=== PATIENT | female | born 1935 | race American Indian/Alaskan Native ===

== ENCOUNTER 2017-09-21 12:56 | Outpatient (CLI) | payer MEDICARE, OTHER ==
--- NOTE | 2017-09-22 15:12 | Ultrasound Report ---
BILATERAL DIGITAL DIAGNOSTIC MAMMOGRAM with CAD and RIGHT BREAST ULTRASOUND: 09/21/17 12:56:00 CLINICAL: Breast cancer survivor status post right mastectomy with TRAM reconstruction approximately 16 years ago. Right breast lump. COMPARISON:05/05/16 FINDINGS: The left breast is heterogeneously dense, which may obscure small masses.No mass, architectural distortion or suspicious calcifications. Left vascular calcifications. Normal appearance of the reconstructed right breast. No mass, architectural distortion or suspicious calcifications of the right TRAM reconstruction. Ultrasound of the symptomatic palpable lump was performed. It is located at 1 o'clock 9 cm from the nipple and correlates with the lesion described previously at 1 o'clock 7 cm from the nipple. It measures 5 x 5 x 3 mm and is more echogenic than on the prior exam. It was completely anechoic. The lesion is within the skin and the skin is thickened at 5 mm. IMPRESSION: No mammographic evidence of malignancy.A benign 5 mm skin lesion at 1 o'clock 9 cm from the nipple. This lesion is consistent with benign fat necrosis and although it has changed slightly in appearance, it has no suspicious features. BI-RADS CATEGORY: 3 - - Probably Benign RECOMMENDATION: Six month followup ultrasound of the right palpable skin lesion at 1 o'clock 9 cm from the nipple. ACR BI-RADS MAMMOGRAPHIC CODES: 0 = Needs additional imaging evaluation; 1 = Negative; 2 = Benign; 3 = Probably benign; 4 = Suspicious; 5 = Malignant; 6 = Known biopsy-proven malignancy COMMENT: 1. Dense breast tissue, i.e., adenosis, fibrocystic changes, etc., may obscure an underlying neoplasm. 2. Approximately 10% of cancers are not detected with mammography. 3. A negative mammography report should not delay biopsy if a clinically suspicious mass is present. COMMENT: Patient follow-up letters are generated by our [employer] application.
== END 2017-09-21 12:57 | disposition home or self-care (01) ==
LOC: SPVWC 12:56
PROVIDERS: ATTEND Internal Medicine Hematology & Oncology
DX: N64.89 Other specified disorders of breast (principal); Z90.11 Acquired absence of right breast and nipple; Z98.82 Breast implant status
CPT/HCPCS: 76642; G0204; 77066; 77067; G0202

== ENCOUNTER 2017-11-27 09:09 | Outpatient (CLI) | payer MEDICARE, OTHER ==
[2017-11-27] MEDS ORDERED: PROVENTIL IH ONE (10:37)
--- NOTE | 2017-11-27 13:24 | XRay Report ---
Chest 2 views: History: Cough. Findings: Normal cardiomediastinal silhouette. Trachea is midline. Stable pacemaker. No consolidation, pneumothorax or pleural effusion. Impression: No acute cardiopulmonary findings.
--- NOTE | 2017-11-28 07:42 | Ultrasound Report ---
ULTRASOUND RENAL BILATERAL HISTORY: Cyst of kidney. TECHNIQUE: transabdominal ultrasound with color Doppler interrogation. Comparison: Ultrasound abdomen dated 12/05/11. FINDINGS: The right kidney measures 11.0cm. Right renal cortex: 1.0cm. The left kidney measures 12.4cm. Left renal cortex: 1.2cm. Multiple bilateral renal cysts are again identified. The largest cyst within the right renal sinus has increased from 6.7 cm to 7.7 cm in greatest diameter. There are multiple adjacent smaller right renal cysts ranging from 1 cm to 3 cm in diameter. This could also represent a complex cyst with multiple internal septa. There are approximately 4 or 5 simple cortical cysts in the left kidney. The largest cyst at the superior pole has increased from 4.9 cm to 6.9 cm. The renal parenchyma is echogenic consistent with nonspecific renal parenchymal disease. There is no obvious hypervascular mass, calculus or hydronephrosis. The bladder is partially distended with no gross abnormality. IMPRESSION: Echogenic kidneys consistent with nonspecific renal parenchymal disease. Multiple, bilateral renal cysts. When comparing to the 2012 abdominal sonogram the overall pattern of the cysts appears unchanged although a few cysts appear slightly larger.
--- NOTE | 2017-11-29 23:31 | Pulmonary Function Test ---
REFERRING PHYSICIAN: Delroy Oshea MD Spirometry reveal FVC is normal. FEV1 is moderately reduced at 0.93 liters, which is 71% of predicted. FEV1/FVC ratio is reduced at 53. MVV is reduced out of proportion of reduced FEV1, indicating neuromuscular weakness or poor effort. Flow volume loop revealed reduction of flow rates during expiration. Lung volumes were normal. Diffusion capacity is moderate to severely reduced at 53% of predicted. Postbronchodilator study showed 14% increase in FEV1 following inhaled bronchodilators showing some reversibility. Arterial blood gases on room air showed pH of 7.39, pCO2 of 40, pO2 of 71. Bicarb of 24. IMPRESSION: Moderate degree of obstructive ventilatory impairment with some reversibility noted, changes are suggestive of chronic obstructive pulmonary disease. Arterial blood gases show evidence of V/Q mismatch and mild hypoxemia. If the patient is symptomatic, therapy with bronchodilator is recommended. JOB# [id number] CA/NTS
== END 2017-11-27 09:10 | disposition home or self-care (01) ==
LOC: PF 09:09
PROVIDERS: ATTEND Internal Medicine
DX: N28.1 Cyst of kidney, acquired (principal); J44.9 Chronic obstructive pulmonary disease, unspecified; N32.89 Other specified disorders of bladder; Z95.0 Presence of cardiac pacemaker
CPT/HCPCS: 36600; 71046; 76770; 82803; 94060; 94640; 94726; 94729

== ENCOUNTER 2018-03-23 13:47 | Outpatient (CLI) | payer MEDICARE, OTHER ==
--- NOTE | 2018-03-23 16:09 | Ultrasound Report ---
RIGHT BREAST ULTRASOUND: 03/23/18 13:47:00 CLINICAL: Followup of any palpable right breast lump at 1 o'clock 8 cm from the nipple. Status post right mastectomy with TRAM reconstruction approximately 16 years ago. COMPARISON: 09/21/17 and 05/05/16 FINDINGS: Ultrasound of the right breast demonstrated a stable subcutaneous oval hypoechoic slightly irregular mass contiguous to the dermis at 1 o'clock 8 cm from the nipple. It measures approximately 6 x 2 6 mm compared to 5 x 5 x 3 mm on the last exam. It has a few internal echoes and is not significantly changed in appearance since 05/05/16. IMPRESSION: A stable benign skin lesion at 1 o'clock 8 cm from the nipple. BI-RADS 2 - - Benign RECOMMENDATION: Clinical followup.
== END 2018-03-23 13:48 | disposition home or self-care (01) ==
LOC: SPVWC 13:47
PROVIDERS: ATTEND Internal Medicine Hematology & Oncology
DX: C50.919 Malignant neoplasm of unspecified site of unspecified female breast (principal); J44.9 Chronic obstructive pulmonary disease, unspecified; I10 Essential (primary) hypertension; Z95.1 Presence of aortocoronary bypass graft; Z90.710 Acquired absence of both cervix and uterus; Z96.651 Presence of right artificial knee joint

== ENCOUNTER 2018-10-28 19:37 | Emergency (ER) | payer MEDICARE, OTHER ==
[2018-10-28 20:40] LABS: Hematocrit 42.9 % (30.3-42.9); Hemoglobin 13.7 gm/dl (10.1-14.3); Mean Corpuscular HGB Conc 32 % (30-34); Mean Corpuscular Volume 90 fl (79-97); Platelet Count 118 K/mm3 (140-440); Red Blood Count 4.78 M/mm3 (3.65-5.03); Red Cell Distribution Width 13.5 % (13.2-15.2)
[2018-10-28 20:58] LABS: BUN/Creatinine Ratio 19; Blood Urea Nitrogen 21 mg/dL (7-17); Calcium 9.3 mg/dL (8.4-10.2); Hemolysis Index 93
--- NOTE | 2018-10-28 21:34 | XRay Report ---
FINAL REPORT EXAM: XR CHEST ROUTINE 2V HISTORY: Shortness of breath COMPARISON: None available. FINDINGS:: Frontal and lateral views of the chest obtained. Cardiac silhouette is within normal limi ts. Mild hyperinflation of the lungs. Tiny calcified granuloma right upper lung. No focal consolidati on or effusion. No pneumothorax. Visualized bony thorax is grossly intact. Left-sided cardiac pacer i s in place. IMPRESSION:: No acute infiltrates or effusions. Mild hyperinflation of the lungs.
[2018-10-28] MEDS ORDERED: SOLU-Medrol IV ONE (21:40)
[2018-10-28] MEDS ORDERED: PROVENTIL IH ONE (21:41)
[2018-10-28] MEDS ORDERED: ATROVENT IH ONE (21:41)
--- NOTE | 2018-10-28 21:51 | Emergency Department Report ---
HPI - General Chief Complaint: Dyspnea/Respdistress Time Seen by Provider: 10/28/18 21:35 - HPI HPI: 82-year-old -[place] female presents to the emergency department from home with a complaint of some shortness of breath and a mixed dry and productive cough and some wheezing has been going on for most of the day. The patient says that she was recently diagnosed with COPD back in December of last year. She is not oxygen dependent at home. She has never been a tobacco smoker. Patient was here at the end of September for a COPD exacerbation and similar symptoms. She denies any fever, chest pain, lower extremity edema, fever. The patient has been using her albuterol nebulizer and increasing amounts throughout the day without much relief. Her primary care physician is Dr. Malik and her manager market is Dr. Goss. She also has a past medical history of hypertension and has a pacemaker in place for a history of irregular heart rate. No recent travel or sick contacts at home. ED Past Medical Hx - Past Medical History Hx Hypertension: Yes Hx COPD: Yes (dx 12/2017) - Surgical History Hx Open Heart Surgery: Yes (pacemaker) Hx Pacemaker: Yes (Irregular HR) Additional Surgical History: HYSTERECTOMY, RT MASTECTOMY,PACEMAKER,TOTAL RT KNEE SURGERY, L eye sx x 5. - Social History Smoking Status: Never Smoker Substance Use Type: None - Medications Home Medications: Home Medications Medication Instructions Recorded Confirmed Last Taken Type RX: Calcium Carbonate/Vitamin D3 1 each PO DAILY 09/07/14 09/07/14 09/06/14 History [Centrum Pro Nutrients Tablet] RX: Carvedilol [Coreg] 25 mg PO BID 09/07/14 09/07/14 09/06/14 History RX: Felodipine [Felodipine ER] 5 mg PO DAILY 09/07/14 09/07/14 09/06/14 History RX: LORazepam [Ativan] 0.5 mg PO HS 09/07/14 09/07/14 09/06/14 History RX: Olmesartan (Nf) [Benicar] 40 mg PO DAILY 09/07/14 09/07/14 09/06/14 History RX: Tramadol HCl [traMADol] 50 mg PO DAILY PRN 09/07/14 09/07/14 Unknown History Ipratropium/Albuterol Sulfate 1 spray IH QID #1 aer.w.adap 09/08/14 Unknown Rx [Combivent Respimat] RX: Amoxicillin/K Clav Tab 1 each PO Q12HR #14 tablet 09/08/14 Unknown Rx [Augmentin 875MG TAB] Albuterol Sulfate [Albuterol 0.63% 0.63 mg IH Q4HR PRN #2 ml 10/12/18 Unknown Rx NEBS] Albuterol Sulfate [Proair 90 mcg IH Q4HR PRN #2 aer.pow.ba 10/12/18 Unknown Rx Respiclick] Ipratropium [Atrovent NEB] 0.5 mg IH Q4HR #2 ml 10/12/18 Unknown Rx Nebulizer [Compact Compressor 1 each MC QDAY #1 each 10/12/18 Unknown Rx Nebulizer] RX: predniSONE [Deltasone] 20 mg PO BID #10 tab 10/29/18 Unknown Rx ED Review of Systems ROS: Stated complaint: JORDEN Other details as noted in HPI Comment: All other systems reviewed and negative Constitutional: denies: chills, fever Eyes: denies: eye pain, eye discharge, vision change ENT: denies: ear pain, throat pain Respiratory: cough, shortness of breath, wheezing Cardiovascular: denies: chest pain, edema Gastrointestinal: denies: abdominal pain, vomiting Genitourinary: denies: dysuria, discharge Musculoskeletal: denies: back pain, arthralgia Skin: denies: rash, lesions Neurological: denies: headache, weakness Physical Exam - Physical Exam Vital Signs: Vital Signs 10/28/18 10/28/18 10/28/18 19:43 20:19 21:35 Temperature 97.6 F 97.6 F 97.8 F Pulse Rate 81 80 85 Respiratory 18 20 12 Rate Blood Pressure 112/73 112/73 Blood Pressure 143/73 [Left] O2 Sat by Pulse 86 96 97 Oximetry Physical Exam: GENERAL: The patient is well-developed well-nourished. HEENT: Normocephalic. Atraumatic. Patient has moist mucous membranes. EYES: Extraocular motions are intact. Pupils are equal and reactive to light bilaterally. NECK: Supple. Trachea is midline. CHEST/LUNGS: There is mild expiratory wheezing throughout the chest. A mild dry cough heard during examination. No tachypnea or accessory muscle use. There is no respiratory distress noted. HEART/CARDIOVASCULAR: Regular. There is no tachycardia. There is no obvious murmur. ABDOMEN: Abdomen is soft, nontender. Patient has normal bowel sounds. There is no abdominal distention. SKIN: Skin is warm and dry. NEURO: The patient is awake, alert, and oriented. The patient is cooperative. The patient has no focal neurologic deficits. The patient has normal speech. MUSCULOSKELETAL: There is no tenderness or deformity. There is no limitation range of motion. There is no evidence of acute injury. ED Course Vital Signs 10/28/18 10/28/18 10/28/18 19:43 20:19 21:35 Temperature 97.6 F 97.6 F 97.8 F Pulse Rate 81 80 85 Respiratory 18 20 12 Rate Blood Pressure 112/73 112/73 Blood Pressure 143/73 [Left] O2 Sat by Pulse 86 96 97 Oximetry ED Medical Decision Making - Lab Data Result diagrams: 10/28/18 20:27 10/28/18 20:27 - EKG Data -: EKG Interpreted by Me - EKG Data When compared to previous EKG there are: no significant change Interpretation: unchanged when compared t (10/12/18), other (ventricular paced rhythm at 78 bpm, left axis deviation.) - Radiology Data Radiology results: report reviewed, image reviewed interpreted by me: Chest x-ray shows some hyperinflation of the lungs and flattening of the diaphragms. No pleural effusion or obvious pneumonia. No pneumothorax. EXAM: CT ANGIO CHEST HISTORY: SOB, elevated dimer COMPARISON: Chest x-ray from the same date. CT of the chest from August 2014. TECHNIQUE: Contiguous axial images were obtained. Additional sagittal and coronal reformatted images were obtained. Administration of IV contrast given per institution protocol. Images submitted for interpretation. FINDINGS: Heart borderline enlarged. Thoracic aorta is normal in caliber. Ascending thoracic aorta measures 3 centimeters in diameter. No acute dissection or rupture. No pulmonary embolus. Main pulmonary arteries measure up to 2 centimeters in diameter within normal limits. Benign calcified right hilar lymph nodes compatible sequela remote granulomatous disease. No pathologically enlarged intrathoracic or axillary lymph nodes. Tracheobronchial tree remains patent. Small amount of frothy material within bronchi. Wxux-nf-quyrcykm diffuse bronchial wall thickening similar prior study. Mild linear atelectasis at the lung bases. No large airspace consolidation or pleural effusion. Calcified granuloma right upper lobe measuring 4 millimeters. Snjx-ys-wshmmkgv distention of the majority the soft the Pito. Distal esophagus is mildly narrowed. Partial visualization of multiple bilateral renal cysts. Wybw-gf-tqmuuynt degenerative changes of the thoracic spine. Benign hemangioma at the T12 level. Two small left hepatic lobe cyst. IMPRESSION: No pulmonary embolus. Bxex-zl-ugqvuvvb diffuse bronchial wall thickening similar prior study concerning for chronic bronchitis. No acute infiltrates or effusions. Wwrd-nu-cgalqbpz distention of the esophagus. Mild narrowing of the distal esoph lakisha. Similar findings seen on prior study. Dilatation the esophagus may relate to patulous esophagus rather the obstructive process. Transcribed By: LMA Dictated By: CHRISTIAN WILKINS MD Electronically Authenticated By: CHRISTIAN WILKINS MD Signed Date/Time: 10/29/1839 - Medical Decision Making Patient presents with some shortness of breath, wheezing, coughing. She has some mild bronchospasm on examination but does not appear in any respiratory distress. Chest x-ray did not show any focal consolidation, pneumothorax, pneumonia, pleural effusions, or any other acute process. Labs were mostly unremarkable except for a elevated and equivocal d-dimer. For this reason a CT angiography of the chest was done that did not show any pulmonary embolism, diss ection or any other acute process. Patient was given some breathing treatments and Solu-Medrol and upon reevaluation she is feeling improved. The patient did a lap around the emergency department and did not have any hypoxia, increased work of breathing or tachypnea, or any signs of respiratory distress. The patient says that she feels well and is asking for discharge home. She has good follow-up with both primary care and pulmonology. She has DuoNeb treatments that she can do at home. I have prescribed her a 5 day course of steroids. She will return to the ER with any worsening of her symptoms or any acute distress. - Differential Diagnosis COPD, PE, asthma, bronchitis, pneumonia, CHF Critical Care Time: No Critical care attestation.: If time is entered above; I have spent that time in minutes in the direct care of this critically ill patient, excluding procedure time. ED Disposition Clinical Impression: COPD (chronic obstructive pulmonary disease) Qualifiers: COPD type: COPD with acute exacerbation Qualified Code(s): J44.1 - Chronic obstructive pulmonary disease with (acute) exacerbation Disposition: DC-01 TO HOME OR SELFCARE Is pt being admited?: No Condition: Stable Instructions: Chronic Obstructive Pulmonary Disease (ED) Additional Instructions: Please follow-up with your primary care physician and manager market. Return to the emergency Department with any worsening of your symptoms or any acute distress. Prescriptions: RX: predniSONE [Deltasone] 20 mg PO BID #10 tab Referrals: Cherelle FLOWERS MD [Primary Care Provider] - 2-3 Days SHERWIN GOSS MD [Staff Physician] - 2-3 Days Time of Disposition: 01:49
[2018-10-28 22:57] VITALS: BP 125/95
--- NOTE | 2018-10-29 00:40 | Cat Scan Report ---
FINAL REPORT EXAM: CT ANGIO CHEST HISTORY: SOB, elevated dimer COMPARISON: Chest x-ray from the same date. CT of the chest from August 2014. TECHNIQUE: Contiguous axial images were obtained. Additional sagittal and coronal reformatted images were obtained. Administration of IV contrast given per institution protocol. Images submitted for in terpretation. FINDINGS: Heart borderline enlarged. Thoracic aorta is normal in caliber. Ascending thoracic aorta measures 3 c entimeters in diameter. No acute dissection or rupture. No pulmonary embolus. Main pulmonary arteries measure up to 2 centimeters in diameter within normal limits. Benign calcified right hilar lymph nod es compatible sequela remote granulomatous disease. No pathologically enlarged intrathoracic or axill shyla lymph nodes. Tracheobronchial tree remains patent. Small amount of frothy material within bronchi. Yfja-qs-vunaanl e diffuse bronchial wall thickening similar prior study. Mild linear atelectasis at the lung bases. N o large airspace consolidation or pleural effusion. Calcified granuloma right upper lobe measuring 4 millimeters. Zxic-ep-vrcktvwh distention of the majority the soft the Pito. Distal esophagus is mildly narrowed. Pa rtial visualization of multiple bilateral renal cysts. Tuvn-xa-iateqbvt degenerative changes of the t horacic spine. Benign hemangioma at the T12 level. Two small left hepatic lobe cyst. IMPRESSION: No pulmonary embolus. Nisk-vx-kptpphbg diffuse bronchial wall thickening similar prior study concerning for chronic bronchi tis. No acute infiltrates or effusions. Krmv-ke-vtoffevb distention of the esophagus. Mild narrowing of the distal esophagus. Similar finding s seen on prior study. Dilatation the esophagus may relate to patulous esophagus rather the obstructi ve process.
[2018-10-29 02:36] LABS: Basophils % (Manual) 0 % (0.0-1.8); Platelet Estimate Appears Decreased; Total Cells Counted 100
== END 2018-10-29 02:04 | disposition home or self-care (01) ==
LOC: ED 19:37
DX: J44.1 Chronic obstructive pulmonary disease with (acute) exacerbation (principal)
CPT/HCPCS: 36415; 71046; 71275; 80048; 83880; 84484; 85007; 85025; 85379; 93005; 93010; 94640; 96374; 99284; J2930; Q9967

== ENCOUNTER 2018-11-10 00:56 | Emergency (ER) | payer MEDICARE, OTHER ==
[2018-11-10] MEDS ORDERED: TYLENOL ONE (01:42)
[2018-11-10] MEDS ORDERED: TYLENOL PO ONE (01:44)
--- NOTE | 2018-11-10 02:27 | XRay Report ---
FINAL REPORT PROCEDURE: XR CHEST ROUTINE 2V TECHNIQUE: PA and lateral chest radiographs were obtained. CPT 65211 HISTORY: Shortness of breath COMPARISON: No prior studies are available for comparison. FINDINGS: Heart: Normal. Mediastinum/Vessels: Normal. Lungs/Pleural space: Lungs are expanded. There are no infiltrates, effusions or pneumothoraces.. Bony thorax: No acute osseous abnormality. Other: Pacemaker leads are in proper position. IMPRESSION: There is no acute cardiopulmonary abnormality..
[2018-11-10 02:28] LABS: Basophils % (Auto) 0.4 % (0.0-1.8); Eosinophils # (Auto) 0.1 K/mm3 (0.0-0.4); Eosinophils % (Auto) 1.5 % (0.0-4.3); Hematocrit 38.7 % (30.3-42.9); Hemoglobin 12.3 gm/dl (10.1-14.3); Lymphocytes # (Auto) 0.5 K/mm3 (1.2-5.4); Lymphocytes % (Auto) 5.1 % (13.4-35.0); Mean Corpuscular HGB Conc 32 % (30-34); Mean Corpuscular Volume 89 fl (79-97); Monocytes # (Auto) 0.9 K/mm3 (0.0-0.8); Monocytes % (Auto) 9.3 % (0.0-7.3); Platelet Count 140 K/mm3 (140-440); Red Blood Count 4.33 M/mm3 (3.65-5.03); Red Cell Distribution Width 13.7 % (13.2-15.2)
[2018-11-10] MEDS ORDERED: PROVENTIL IH ONE (02:38)
[2018-11-10] MEDS ORDERED: ATROVENT IH ONE (02:38)
[2018-11-10] MEDS ORDERED: SOLU-Medrol IV ONE (02:38)
[2018-11-10 02:45] LABS: BUN/Creatinine Ratio 13; Blood Urea Nitrogen 14 mg/dL (7-17); Calcium 8.6 mg/dL (8.4-10.2); Hemolysis Index 6
--- NOTE | 2018-11-10 03:05 | Emergency Department Report ---
ED Shortness of Breath HPI - General Chief Complaint: Dyspnea/Respdistress Stated Complaint: DIFFICULTY IN BREATHING Time Seen by Provider: 11/10/18 01:57 Source: patient Mode of arrival: Ambulatory Limitations: No Limitations - History of Present Illness Initial Comments: 83-year-old female with history of COPD presents to ED with shortness of breath. Patient states she had an appointment on yesterday with her manager imaging, Dr. Goss. She states she has had a cough for the last couple of weeks, and has had 2 ER visits in the last 2 months. Patient states her manager imaging gave her Mucinex and samples of Bevespi inhaler. Patient states she awoke earlier in the evening with shortness of breath and wheezing. Patient did administer a nebuliz er treatment at home and then came to the ER. Patient denies chest pain. MD Complaint: shortness of breath -: Last night Severity: moderate Consistency: now resolved Improves With: bronchodilators Worsens With: nothing Known History Of: COPD Context: recent URI Associated Symptoms: cough Treatments Prior to Arrival: bronchodilator - Related Data Home Medications Medication Instructions Recorded Confirmed Last Taken Calcium Carbonate/Vitamin D3 1 each PO DAILY 09/07/14 09/07/14 09/06/14 [Centrum Pro Nutrients Tablet] Carvedilol [Coreg] 25 mg PO BID 09/07/14 09/07/14 09/06/14 Felodipine [Felodipine ER] 5 mg PO DAILY 09/07/14 09/07/14 09/06/14 LORazepam [Ativan] 0.5 mg PO HS 09/07/14 09/07/14 09/06/14 Olmesartan (Nf) [Benicar] 40 mg PO DAILY 09/07/14 09/07/14 09/06/14 Tramadol HCl [traMADol] 50 mg PO DAILY PRN 09/07/14 09/07/14 Unknown Previous Rx's Medication Instructions Recorded Last Taken Type Amoxicillin/K Clav Tab [Augmentin 1 each PO Q12HR #14 tablet 09/08/14 Unknown Rx 875MG TAB] Ipratropium/Albuterol Sulfate 1 spray IH QID #1 aer.w.adap 09/08/14 Unknown Rx [Combivent Respimat] Albuterol Sulfate [Albuterol 0.63% 0.63 mg IH Q4HR PRN #2 ml 10/12/18 Unknown Rx NEBS] Albuterol Sulfate [Proair 90 mcg IH Q4HR PRN #2 aer.pow.ba 10/12/18 Unknown Rx Respiclick] Ipratropium [Atrovent NEB] 0.5 mg IH Q4HR #2 ml 10/12/18 Unknown Rx Nebulizer [Compact Compressor 1 each MC QDAY #1 each 10/12/18 Unknown Rx Nebulizer] predniSONE [Deltasone] 20 mg PO BID #10 tab 10/29/18 Unknown Rx Benzonatate [Tessalon Perles] 100 mg PO Q8HR PRN #20 capsule 11/10/18 Unknown Rx predniSONE [Prednisone] 50 mg PO DAILY #5 tablet 11/10/18 Unknown Rx Allergies Allergy/AdvReac Type Severity Reaction Status Date / Time codeine Allergy Itching Verified 09/07/14 04:24 ED Review of Systems ROS: Stated complaint: DIFFICULTY IN BREATHING Other details as noted in HPI Comment: All other systems reviewed and negative Constitutional: denies: chills, fever Respiratory: cough, shortness of breath, wheezing Cardiovascular: denies: chest pain Musculoskeletal: other (denies leg pain or swelling) ED Past Medical Hx - Past Medical History Hx Hypertension: Yes Hx COPD: Yes (dx 12/2017) - Surgical History Hx Open Heart Surgery: Yes (pacemaker) Hx Pacemaker: Yes (Irregular HR) Additional Surgical History: HYSTERECTOMY, RT MASTECTOMY,PACEMAKER,TOTAL RT KNEE SURGERY, L eye sx x 5. - Social History Smoking Status: Never Smoker Substance Use Type: None - Medications Home Medications: Home Medications Medication Instructions Recorded Confirmed Last Taken Type Calcium Carbonate/Vitamin D3 1 each PO DAILY 09/07/14 09/07/14 09/06/14 History [Centrum Pro Nutrients Tablet] Carvedilol [Coreg] 25 mg PO BID 09/07/14 09/07/14 09/06/14 History Felodipine [Felodipine ER] 5 mg PO DAILY 09/07/14 09/07/14 09/06/14 History LORazepam [Ativan] 0.5 mg PO HS 09/07/14 09/07/14 09/06/14 History Olmesartan (Nf) [Benicar] 40 mg PO DAILY 09/07/14 09/07/14 09/06/14 History Tramadol HCl [traMADol] 50 mg PO DAILY PRN 09/07/14 09/07/14 Unknown History Amoxicillin/K Clav Tab [Augmentin 1 each PO Q12HR #14 tablet 09/08/14 Unknown Rx 875MG TAB] Ipratropium/Albuterol Sulfate 1 spray IH QID #1 aer.w.adap 09/08/14 Unknown Rx [Combivent Respimat] Albuterol Sulfate [Albuterol 0.63% 0.63 mg IH Q4HR PRN #2 ml 10/12/18 Unknown Rx NEBS] Albuterol Sulfate [Proair 90 mcg IH Q4HR PRN #2 aer.pow.ba 10/12/18 Unknown Rx Respiclick] Ipratropium [Atrovent NEB] 0.5 mg IH Q4HR #2 ml 10/12/18 Unknown Rx Nebulizer [Compact Compressor 1 each MC QDAY #1 each 10/12/18 Unknown Rx Nebulizer] predniSONE [Deltasone] 20 mg PO BID #10 tab 10/29/18 Unknown Rx Benzonatate [Tessalon Perles] 100 mg PO Q8HR PRN #20 capsule 11/10/18 Unknown Rx predniSONE [Prednisone] 50 mg PO DAILY #5 tablet 11/10/18 Unknown Rx ED Physical Exam - General Limitations: No Limitations General appearance: alert, in no apparent distress, other (appears frail) - Head Head exam: Present: atraumatic, normocephalic - Eye Eye exam: Present: normal appearance - ENT ENT exam: Present: mucous membranes moist - Neck Neck exam: Present: normal inspection - Respiratory Respiratory exam: Present: wheezes (mild wheezing present). Absent: respiratory distress - Cardiovascular Cardiovascular Exam: Present: normal rhythm, tachycardia - GI/Abdominal GI/Abdominal exam: Present: soft. Absent: distended, tenderness - Extremities Exam Extremities exam: Absent: pedal edema, calf tenderness - Neurological Exam Neurological exam: Present: alert, oriented X3 - Psychiatric Psychiatric exam: Present: normal affect, normal mood - Skin Skin exam: Present: warm, dry, intact, normal color ED Course Vital Signs 11/10/18 11/10/18 11/10/18 01:28 02:16 02:17 Temperature 101.1 F H 100.9 F H Pulse Rate 107 H 104 H 102 H Respiratory 18 19 18 Rate Blood Pressure 125/85 Blood Pressure 116/73 [Left] O2 Sat by Pulse 93 95 100 Oximetry 11/10/18 11/10/18 11/10/18 02:30 02:45 03:00 Temperature Pulse Rate 104 H 97 H 95 H Respiratory 15 17 14 Rate Blood Pressure 116/73 155/71 116/72 Blood Pressure [Left] O2 Sat by Pulse 97 96 98 Oximetry 11/10/18 11/10/18 11/10/18 03:15 03:30 03:45 Temperature Pulse Rate 95 H 91 H 90 Respiratory 23 27 H 18 Rate Blood Pressure 129/66 110/66 113/68 Blood Pressure [Left] O2 Sat by Pulse 98 99 98 Oximetry 11/10/18 11/10/18 11/10/18 04:00 04:15 04:30 Temperature Pulse Rate 88 88 88 Respiratory 21 21 23 Rate Blood Pressure 112/65 119/71 114/64 Blood Pressure [Left] O2 Sat by Pulse 97 98 98 Oximetry ED Medical Decision Making - Lab Data Result diagrams: 11/10/18 02:20 11/10/18 02:20 - EKG Data -: EKG Interpreted by Ga EKG shows normal: QRS complexes, ST-T waves Rate: tachycardia (rate 105) - EKG Data Interpretation: other (paced rhythm) - Radiology Data Radiology results: report reviewed, image reviewed - Medical Decision Making 83-year-old female with COPD and shortness of breath. Mild wheezing on exam. Initial temp of 102. However the wbc's normal, chest x-ray normal, and influenza testing negative. Patient not hypoxic. She is feeling much better following treatment. Will discharge at this time. Outpatient follow up advised - Differential Diagnosis pneumonia, influenza, COPD, viral URI Critical care attestation.: If time is entered above; I have spent that time in minutes in the direct care of this critically ill patient, excluding procedure time. ED Disposition Clinical Impression: Fever, URI (upper respiratory infection), COPD with exacerbation Disposition: -01 TO HOME OR SELFCARE Is pt being admited?: No Condition: Stable Instructions: Chronic Obstructive Pulmonary Disease (ED) Prescriptions: Benzonatate [Tessalon Perles] 100 mg PO Q8HR PRN #20 capsule PRN Reason: Cough predniSONE [Prednisone] 50 mg PO DAILY #5 tablet Referrals: TORIBIO BROWN MD [Primary Care Provider] - 3-5 Days
[2018-11-10 04:39] VITALS: BP 114/64
== END 2018-11-10 04:47 | disposition home or self-care (01) ==
LOC: ED 00:56
DX: J06.9 Acute upper respiratory infection, unspecified (principal); J44.1 Chronic obstructive pulmonary disease with (acute) exacerbation; I10 Essential (primary) hypertension; Z95.0 Presence of cardiac pacemaker; Z90.710 Acquired absence of both cervix and uterus; Z90.11 Acquired absence of right breast and nipple; Z98.890 Other specified postprocedural states; Z95.1 Presence of aortocoronary bypass graft; Z88.5 Allergy status to narcotic agent
CPT/HCPCS: 36415; 71046; 80048; 84484; 85025; 87040; 87400; 93005; 93010; 94640; 96374; 99284; J2930

== ENCOUNTER 2018-12-14 10:11 | Day surgery (SDC) | payer MEDICARE, OTHER ==
[2018-12-14] MEDS ORDERED: XYLOCAINE 1% 20 mL ONE (10:18)
[2018-12-14] MEDS ORDERED: MARCAINE 0.5% INFILTRATI ONE ×2 (10:18→11:12)
[2018-12-14] MEDS ORDERED: XYLOCAINE 1% 20 mL INFILTRATI ONE (11:14)
--- NOTE | 2018-12-14 11:17 | Short Stay Summary ---
Invasive Assessment - Date Date of service: 12/14/18 - History & Physical H&P: obtained from office Allergies/Adverse Reactions: Allergies codeine Allergy (Verified 12/12/18 16:38) Itching Home Medications: Home Medications Medication Instructions Recorded Confirmed Last Taken Type Carvedilol [Coreg] 25 mg PO BID 09/07/14 09/07/14 09/06/14 History Olmesartan (Nf) [Benicar] 40 mg PO DAILY 09/07/14 09/07/14 09/06/14 History Albuterol Sulfate [Albuterol 0.63% 0.63 mg IH Q4HR PRN #2 ml 10/12/18 Unknown Rx NEBS] Glycopyrrolate/Formoterol Fum 1 puff IH TID 12/12/18 12/12/18 Unknown History [Bevespi Aerosphere Inhaler] - Procedure Note Procedure: Excision of STM right chest wall Findings: see path Pathology: list (STM) Specimen disposition: to lab Estimated blood loss: none Tolerated Procedure Well: Yes Complications: none Invasive Assessment DC Note - Disposition Disposition: DC-01 TO HOME OR SELFCARE - Instructions Activity: no restrictions, other (use ice pack off and on today) Follow up with: Cherelle FLOWERS MD [Primary Care Provider] - 7 Days TERESA MILLAN MD [Staff Physician] - 7 Days
[2018-12-14 11:27] VITALS: BP 172/96
--- NOTE | 2018-12-14 11:27 | Operative Report ---
Operative Report Operative Report: Preoperative diagnosis: Soft tissue mass right chest wall/breast 1:00. 1 x 1 cm; marked with patient's assistance Postoperative diagnosis: Same Procedure: Excision of soft tissue mass Type of anesthesia: Local EBL ; none Indication: This is an 83-year-old woman with history of breast cancer with reconstructed right breast who presents with a soft tissue mass located on the medial right breast /chest wall area requiring excision for diagnosis and treatment. Procedure: Patient was placed supine on the operating table in the minor procedure room. The area of concern was prepped and draped in the usual fashion. 1-1 mixture of 0.25 percent Marcaine and 1% lidocaine was infiltrated in a field block anesthesia fashion. An elliptical incision was made overlying the soft tissue mass and the mass was excised using sharp dissection. The mass was sent to pathology. Hemostasis was ascertained in the wound. The skin was then reapproximated using 4-0 Monocryl in a subcuticular fashion. The wound was dressed with skin glue. Patient tolerated the procedure. There were no immediate complications. All counts reported as correct. Patient was discharged in good condition. Chana Blank M.D. 12-14-2018 11:26 AM
== END 2018-12-14 11:25 | disposition home or self-care (01) ==
LOC: OR 10:11
PROVIDERS: ATTEND Surgery
DX: C79.2 Secondary malignant neoplasm of skin (principal); J44.9 Chronic obstructive pulmonary disease, unspecified; I10 Essential (primary) hypertension; K21.9 Gastro-esophageal reflux disease without esophagitis; M19.90 Unspecified osteoarthritis, unspecified site; Z72.89 Other problems related to lifestyle; Z80.3 Family history of malignant neoplasm of breast; Z88.5 Allergy status to narcotic agent; Z79.899 Other long term (current) drug therapy; Z98.42 Cataract extraction status, left eye; Z98.41 Cataract extraction status, right eye; Z95.0 Presence of cardiac pacemaker; Z90.11 Acquired absence of right breast and nipple; Z96.651 Presence of right artificial knee joint; Z80.8 Family history of malignant neoplasm of other organs or systems; Z98.890 Other specified postprocedural states
CPT/HCPCS: 88305; 88307; 88341; 88342

== ENCOUNTER 2019-01-03 09:56 | Outpatient (CLI) | payer MEDICARE, OTHER ==
--- NOTE | 2019-01-04 15:40 | PET Report ---
PET/CT:01/03/19 09:56:00 CLINICAL: Breast cancer restaging. History of right breast cancer status post mastectomy with TRAM reconstruction approximately 17 years ago. RADIOPHARMACEUTICAL: 15.109mCi F18-FDG. COMPARISON: 05/27/18 PET/CT TECHNIQUE- Following intravenous injection of F-18 FDG and an approximately 60 minute uptake period, CT and PET images from the mid skull to the upper thighs were acquired with the patient in the fasted state. No contrast was administered. The CT protocol used for this PET CT study is designed for attenuation correction and anatomic localization of PET abnormalities. This landscape horticulture instructor CT is not desired to produce and cannot replace, [id number] diagnostic CT scans with specific imaging protocols for different body parts and indications. Plasma glucose at the time of this test: 98g/dl. The standardized uptake values (SUV) are normalized to patient body weight and indicate the highest activity concentration (SUV max) in a given disease site. FINDINGS: Brain--Physiologic FDG uptake in the visualized regions of the brain. Neck--Physiologic FDG uptake in mucosal structures. No mass or lymphadenopathy. Chest--Physiologic FDG uptake in mediastinal blood pool and myocardium. Lungs--No abnormal uptake. A tiny right upper lobe calcified granuloma. No other pulmonary nodule or mass. Pleura/pericardium--No abnormal uptake. Thoracic nodes--No abnormal uptake. Calcified right hilar lymph nodes. Hepatobiliary--No abnormal uptake. Liver background SUV mean, as a reference for comparing FDG studies, is 2.6 compared to 2.7 on the last exam. No liver mass. Spleen--No abnormal uptake. Pancreas--No abnormal uptake. Adrenal Glands--No abnormal uptake. Kidneys/Ureters/Bladder--No abnormal uptake. Large bilateral renal cysts. Abdominopelvic Nodes--No abnormal uptake. Bowel/Peritoneum/Mesentery--No abnormal uptake. Pelvic organs--No abnormal uptake. Bones/Soft Tissues--No abnormal uptake and no suspicious bone lesion. Benign hemangiomas at T12 and L1. IMPRESSION- Negative study. No evidence of disease recurrence or metastasis.
== END 2019-01-03 09:57 | disposition home or self-care (01) ==
LOC: PET 09:56
PROVIDERS: ATTEND Internal Medicine Hematology & Oncology
DX: N28.1 Cyst of kidney, acquired (principal); I10 Essential (primary) hypertension; C79.2 Secondary malignant neoplasm of skin; M19.90 Unspecified osteoarthritis, unspecified site; J44.9 Chronic obstructive pulmonary disease, unspecified; Z90.12 Acquired absence of left breast and nipple; K21.9 Gastro-esophageal reflux disease without esophagitis; Z90.710 Acquired absence of both cervix and uterus; C50.919 Malignant neoplasm of unspecified site of unspecified female breast
CPT/HCPCS: 78815; A9552

== ENCOUNTER 2019-02-12 10:37 | Day surgery (SDC) | payer MEDICARE, OTHER ==
[~2019-02-12 10:37] MED LIST: ANCEF/STERILE WATER 2 GM/20 ML IV NR
[2019-02-12] MEDS ORDERED: LACTATED RINGERS 1,000 ML IV SCH (11:09)
[2019-02-12] MEDS ORDERED: DILAUDID IV PRN (11:36)
[2019-02-12] MEDS ORDERED: ZOFRAN IV PRN (11:36)
[2019-02-12] MEDS ORDERED: NARCAN 0.4 MG/1 ML IV PRN (11:36)
[2019-02-12] MEDS ORDERED: SUBLIMAZE IV PRN (11:36)
--- NOTE | 2019-02-12 11:36 | Anesthesia Consultation ---
Anesthesia Consult and Med Hx Date of service: 02/12/19 - Airway Anesthetic Teeth Evaluation: Dentures ROM Head & Neck: Adequate Mental/Hyoid Distance: Adequate Mallampati Class: Class II Intubation Access Assessment: Good - Pulmonary Exam CTA: Yes - Cardiac Exam Cardiac Exam: RRR - Pre-Operative Health Status ASA Pre-Surgery Classification: ASA3 Proposed Anesthetic Plan: General - Pulmonary Hx Smoking: No COPD: Yes Hx Pneumonia: No - Cardiovascular System Hx Hypertension: Yes (2003) Hx Pacemaker: Yes ([employer]; [employer] ASSISTANT DR. DU MERNA [facility]) - Central Nervous System Hx Psychiatric Problems: No - Other Systems Hx Alcohol Use: Yes (SOCIAL) Hx Substance Use: No Hx Cancer: Yes
--- NOTE | 2019-02-12 11:36 | Anesthesia Day of Surgery ---
Anesthesia Day of Surgery - Day of Surgery Patient Examined: Yes Patient H&P Reviewed: Yes Patient is NPO: Yes Beta Blockers: Yes Cardiac Clearance: Yes
[2019-02-12] MEDS ORDERED: SUBLIMAZE ONE (11:48)
[2019-02-12 12:18] LABS: Hematocrit 38.3 % (30.3-42.9); Hemoglobin 12.5 gm/dl (10.1-14.3)
[2019-02-12] MEDS ORDERED: PROAIR IH ONE (12:30)
[2019-02-12] MEDS ORDERED: DIPRIVAN 10 MG/ML IV ONE (12:59)
[2019-02-12] MEDS ORDERED: XYLOCAINE 1%/ EPI 1:100,000 INFILTRATI ONE ×2 (12:59→13:58)
[2019-02-12] MEDS ORDERED: MARCAINE 0.25% INFILTRATI ONE ×2 (13:00→13:59)
--- NOTE | 2019-02-12 13:35 | Post Operative Note ---
Date of procedure: 02/12/19 Pre-op diagnosis: right chest wall recurrent breast cancer Post-op diagnosis: same Findings: See pathology Procedure: Excision of right chest margins Anesthesia: MAC Surgeon: TERESA MILLAN Estimated blood loss: none Pathology: list (right chest wall mass) Specimen disposition: to lab Condition: stable Disposition: PACU
--- NOTE | 2019-02-12 13:39 | Discharge Summary ---
Short Stay Discharge Plan Activity: no restrictions Diet: regular Wound: open to air, other (use ice pack off and on today) Special Instructions: other (May shower and get incision wet in 2 days) Follow up with: Cherelle FLOWERS MD [Primary Care Provider] - 7 Days TERESA MILLAN MD [Staff Physician] - 7 Days Prescriptions: HYDROcodone/APAP 5-325 [[place] 5/325] 1 each PO Q6HR PRN #10 tablet PRN Reason: Pain
[2019-02-12 14:09] VITALS: BP 145/82
--- NOTE | 2019-02-12 14:39 | Operative Report ---
PREOPERATIVE DIAGNOSIS: Right chest wall recurrent breast cancer. POSTOPERATIVE DIAGNOSIS: Right chest wall recurrent breast cancer. PROCEDURE: Excision of right chest wall margins. TYPE OF ANESTHESIA: Local MAC. SURGEON: Chana Blank MD WOOD BARREL RECONDITIONER: None. ESTIMATED BLOOD LOSS: Minimal to None. INDICATIONS: This is an 83-year-old woman who had right breast cancer back over 20 years ago. At that time, she had a mastectomy and TRAM reconstruction. A few months ago, she was noted to have a right chest wall nodule that was 1 x 1 cm. This was excised and sent to pathology and it came back as recurrent metastatic right breast cancer. The margins were positive. Therefore, she required reexcision of these margins. DESCRIPTION OF PROCEDURE: The patient was brought to the operating room, laid supine on the table. After adequate IV sedation was obtained, the right chest wall and TRAM reconstructed, breasts were prepped and draped in the usual fashion. Initially over the right chest wall about 2:00 zone C 1:1 mixture of 0.25% Marcaine and 1% lidocaine was infiltrated in field block anesthesia fashion. An elliptical incision was made over the previous incisional scar from excision of the soft tissue mass. Dissection was carried down to the muscle and the skin and the tissue underneath were all excised. The specimen was labeled with sutures for orientation and sent to pathology. Hemostasis was ascertained. The subcutaneous pocket was closed with 3-0 Vicryl in an interrupted fashion and skin was reapproximated using 4-0 Monocryl in running subcuticular fashion. The wound dressed with skin glue. The patient tolerated the procedure. There were no immediate complications. All counts were reported as correct. JOB# [id number] WILFREDO/NTS
--- NOTE | 2019-02-12 16:45 | Post Anesthesia Evaluation ---
- Post Anesthesia Evaluation Patient Participated: Yes Airway Patent: Yes Stable Respiratory Function: Yes Nausea/Vomiting: No Temp > 96.8F: Yes Pain Manageable: Yes Adequeate Hydration: Yes Anesthesia Complications: No
== END 2019-02-12 10:38 | disposition home or self-care (01) ==
LOC: OR 10:37
PROVIDERS: ATTEND Surgery
DX: C50.911 Malignant neoplasm of unspecified site of right female breast (principal); J44.9 Chronic obstructive pulmonary disease, unspecified; H40.9 Unspecified glaucoma; K21.9 Gastro-esophageal reflux disease without esophagitis; M81.0 Age-related osteoporosis without current pathological fracture; I10 Essential (primary) hypertension; M19.90 Unspecified osteoarthritis, unspecified site; Z98.41 Cataract extraction status, right eye; Z98.42 Cataract extraction status, left eye; Z95.0 Presence of cardiac pacemaker; Z90.11 Acquired absence of right breast and nipple; Z90.710 Acquired absence of both cervix and uterus; Z96.651 Presence of right artificial knee joint; Z98.890 Other specified postprocedural states; Z88.5 Allergy status to narcotic agent; Z79.899 Other long term (current) drug therapy; Z80.3 Family history of malignant neoplasm of breast; Z80.0 Family history of malignant neoplasm of digestive organs; Z85.89 Personal history of malignant neoplasm of other organs and systems
CPT/HCPCS: 21557; 36415; 85014; 85018; 88307; 88342; J0690; J2704; J3010; J7120; 88341

== ENCOUNTER 2019-04-17 09:06 | Emergency (ER) | payer MEDICARE, OTHER ==
--- NOTE | 2019-04-17 09:50 | XRay Report ---
CHEST 2 VIEWS INDICATION: Acute shortness of breath. COMPARISON: 01/01/2019 FINDINGS: Support devices: 2-lead pacemaker device is in position. Heart: Within normal limits. Lungs/pleura: The lungs appear mildly hyperinflated. No acute air space or interstitial disease. No pneumothorax. Additional findings: None. IMPRESSION: Mild hyperinflation. No acute cardiopulmonary process. Signer Name: Juan M Mary Jr, MD Signed: 04/17/2019 8:45 AM Workstation Name: [id number]
[2019-04-17] MEDS ORDERED: ATROVENT IH ONE (10:21)
[2019-04-17] MEDS ORDERED: PROVENTIL IH ONE (10:21)
[2019-04-17] MEDS ORDERED: MAGNESIUM SULFATE 2GM/50ML 2 GM/50 ML BAG IV ONE (10:21)
[2019-04-17] MEDS ORDERED: SOLU-Medrol IV ONE (10:21)
[2019-04-17 10:47] LABS: Basophils % (Auto) 0.5 % (0.0-1.8); Eosinophils # (Auto) 0.2 K/mm3 (0.0-0.4); Eosinophils % (Auto) 5.1 % (0.0-4.3); Hematocrit 38.6 % (30.3-42.9); Hemoglobin 12.7 gm/dl (10.1-14.3); Lymphocytes # (Auto) 1.8 K/mm3 (1.2-5.4); Lymphocytes % (Auto) 40.4 % (13.4-35.0); Mean Corpuscular HGB Conc 33 % (30-34); Mean Corpuscular Volume 88 fl (79-97); Monocytes # (Auto) 0.4 K/mm3 (0.0-0.8); Monocytes % (Auto) 8.2 % (0.0-7.3); Platelet Count 144 K/mm3 (140-440); Red Blood Count 4.41 M/mm3 (3.65-5.03); Red Cell Distribution Width 13.5 % (13.2-15.2)
--- NOTE | 2019-04-17 11:02 | Emergency Department Report ---
ED Shortness of Breath HPI - General Chief Complaint: Dyspnea/Respdistress Stated Complaint: JORDEN Time Seen by Provider: 04/17/19 10:11 Source: patient, family Mode of arrival: Ambulatory Limitations: No Limitations - History of Present Illness Initial Comments: 83-year-old female with a past medical history arthritis, COPD (no home oxygen or previous intubations), breast cancer previously in remission for 20 years recently rediagnosed with planned radiation treatment, GERD, hypertension, and pulmonary embolism diagnosed on a recent admission in February 2019 on Eliquis presents to the Hospital complains of shortness of breath due to COPD. Patient states she has not felt completely better since admission and discharge on 03/04/2019 which she was treated for COPD exacerbation and diagnosed with pulmonary embolism due to the high probability V/Q study. She states continues to have cough productive of white sputum, wheezing, and shortness of breath. She has been using her inhaler and nebulizer treatment more frequently the last several days. She denies pain or fevers. Her primary care doctor treated her with the steroid pack 2 weeks ago without improvement. She has not seen her frame expander is Dr. Goss since her discharged in February. PMD Dr. Santos, frame expander on the ground, cancer doctor: Dr. Win - Related Data Home Medications Medication Instructions Recorded Confirmed Last Taken amLODIPine [Norvasc] 5 mg PO DAILY 02/11/19 03/03/19 Unknown ALBUTEROL Inhaler (OR & NICU) 2 puff IH QID PRN 03/03/19 03/03/19 Unknown [ProAir HFA Inhaler] Bevespi Aerosphere Inhaler 03/03/19 Unknown Olmesartan Medoxomil [Benicar] 40 mg PO DAILY 03/03/19 03/03/19 Unknown Previous Rx's Medication Instructions Recorded Last Taken Type Apixaban [Eliquis] 5 mg PO Q12HR 30 Days #60 tablet 03/04/19 Unknown Rx Carvedilol [Coreg] 25 mg PO BID #60 tablet 03/04/19 Unknown Rx LORazepam [Ativan] 0.5 mg PO Q12H PRN #20 tablet 03/04/19 Unknown Rx Losartan [Cozaar] 100 mg PO QDAY #30 tablet 03/04/19 Unknown Rx ALBUTEROL NEB's [Proventil 0.083% 2.5 mg IH TID PRN #30 neb 04/17/19 Unknown Rx NEBS] Ipratropium/Albuterol Sulfate 1 ampul IH QIDRT #30 ampul.neb 04/17/19 Unknown Rx [DUONEB *Not for PRN Use*] methylPREDNISolone [Medrol 4MG 4 mg PO DAILY #1 tab.ds.pk 04/17/19 Unknown Rx DOSEPAK (21 tabs)] Allergies Allergy/AdvReac Type Severity Reaction Status Date / Time codeine Allergy Itching Verified 04/17/19 09:08 ED Review of Systems ROS: Stated complaint: JORDEN Other details as noted in HPI Comment: All other systems reviewed and negative ED Past Medical Hx - Past Medical History Previous Medical History?: Yes Hx Hypertension: Yes Hx Diabetes: No Hx Pulmonary Embolism: Yes Hx GERD: Yes Hx Arthritis: Yes Hx COPD: Yes Hx HIV: No - Surgical History Past Surgical History?: Yes Hx Pacemaker: Yes ([employer] 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 - Social History Smoking Status: Never Smoker Substance Use Type: None - Medications Home Medications: Home Medications Medication Instructions Recorded Confirmed Last Taken Type amLODIPine [Norvasc] 5 mg PO DAILY 02/11/19 03/03/19 Unknown History ALBUTEROL Inhaler (OR & NICU) 2 puff IH QID PRN 03/03/19 03/03/19 Unknown History [ProAir HFA Inhaler] Bevespi Aerosphere Inhaler 03/03/19 Unknown History Olmesartan Medoxomil [Benicar] 40 mg PO DAILY 03/03/19 03/03/19 Unknown History Apixaban [Eliquis] 5 mg PO Q12HR 30 Days #60 tablet 03/04/19 Unknown Rx Carvedilol [Coreg] 25 mg PO BID #60 tablet 03/04/19 Unknown Rx LORazepam [Ativan] 0.5 mg PO Q12H PRN #20 tablet 03/04/19 Unknown Rx Losartan [Cozaar] 100 mg PO QDAY #30 tablet 03/04/19 Unknown Rx ALBUTEROL NEB's [Proventil 0.083% 2.5 mg IH TID PRN #30 neb 04/17/19 Unknown Rx NEBS] Ipratropium/Albuterol Sulfate 1 ampul IH QIDRT #30 ampul.neb 04/17/19 Unknown Rx [DUONEB *Not for PRN Use*] methylPREDNISolone [Medrol 4MG 4 mg PO DAILY #1 tab.ds.pk 04/17/19 Unknown Rx DOSEPAK (21 tabs)] ED Physical Exam - General Limitations: No Limitations - Other Other exam information: General: No limitations, patient is alert in no acute distress Head exam: Atraumatic, normocephalic Eyes exam: Normal appearance ENT: Moist mucous membrane, normal oropharynx Neck exam: Normal inspection, full range of motion, no meningismus nontender Respiratory exam: Clear to auscultation bilateral, no wheezes, rales, crackles bilateral wheezing without rales, tachypnea, accessory muscle use Cardiovascular: Normal rate and rhythm Abdomen: Soft, nondistended, and nontender, with normal bowel sounds, no rebound, or guarding Extremity: Full range of motion normal inspection no deformity Back: Normal Inspection, full range of motion, no tenderness Neurologic: Alert, oriented x3, cranial nerves intact, no motor or sensory deficit Psychiatric: normal affect, normal mood Skin: Warm, dry, intact ED Course Vital Signs 04/17/19 04/17/19 04/17/19 09:17 10:23 10:29 Temperature 99.2 F Pulse Rate 88 Pulse Rate [ 74 Anterior Bilateral Throughout] Respiratory 20 16 Rate Respiratory 16 Rate [Anterior Bilateral Throughout] Blood Pressure 138/80 [Right] O2 Sat by Pulse 98 97 Oximetry 04/17/19 04/17/19 11:12 11:26 Temperature 98.4 F Pulse Rate 79 Pulse Rate [ 85 Anterior Bilateral Throughout] Respiratory 18 Rate Respiratory 24 Rate [Anterior Bilateral Throughout] Blood Pressure 149/77 [Right] O2 Sat by Pulse 97 Oximetry - Reevaluation(s) Reevaluation #1: 04/17/19 12:20 Patient ambulating any ED without difficulty. Lungs clear after nebulized treatment - Consultations Consultation #1: 04/17/19 12:04 case d/w Dr Spears. advises f/u with vincent 04/17/19 12:16 Case d/w Dr flowers. Agrees with medol pack, continue meds and f/u ED Medical Decision Making - Lab Data Result diagrams: 04/17/19 10:30 04/17/19 10:30 Lab Results 04/17/19 04/17/19 Range/Units 10:30 10:30 WBC 4.5 (4.5-11.0) K/mm3 RBC 4.41 (3.65-5.03) M/mm3 Hgb 12.7 (10.1-14.3) gm/dl Hct 38.6 (30.3-42.9) % MCV 88 (79-97) fl MCH 29 (28-32) pg MCHC 33 (30-34) % RDW 13.5 (13.2-15.2) % Plt Count 144 (140-440) K/mm3 Lymph % (Auto) 40.4 H (13.4-35.0) % Turner % (Auto) 8.2 H (0.0-7.3) % Eos % (Auto) 5.1 H (0.0-4.3) % Baso % (Auto) 0.5 (0.0-1.8) % Lymph # 1.8 (1.2-5.4) K/mm3 Turner # 0.4 (0.0-0.8) K/mm3 Eos # 0.2 (0.0-0.4) K/mm3 Baso # 0.0 (0.0-0.1) K/mm3 Seg Neutrophils % 45.8 (40.0-70.0) % Seg Neutrophils # 2.1 (1.8-7.7) K/mm3 Sodium 144 (137-145) mmol/L Potassium 4.1 (3.6-5.0) mmol/L Chloride 107.9 H (98-107) mmol/L Carbon Dioxide 21 L (22-30) mmol/L Anion Gap 19 mmol/L BUN 13 (7-17) mg/dL Creatinine 1.0 (0.7-1.2) mg/dL Estimated GFR > 60 ml/min BUN/Creatinine Ratio 13 % Glucose 103 H (65-100) mg/dL Calcium 9.5 (8.4-10.2) mg/dL - Radiology Data Radiology results: report reviewed CHEST 2 VIEWS INDICATION: Acute shortness of breath. COMPARISON: 01/01/2019 FINDINGS: Support devices: 2-lead pacemaker device is in position. Heart: Within normal limits. Lungs/pleura: The lungs appear mildly hyperinflated. No acute air space or interstitial disease. No pneumothorax. Additional findings: None. IMPRESSION: Mild hyperinflation. No acute cardiopulmonary process. - Medical Decision Making Patient presents with COPD exacerbation that improved with ED treatment including , Solu-Medrol, and magnesium. Patient tolerated ambulation in the ED without signs of hypoxia. Patient be discharged home to follow up with her primary care doctor and frame expander. Case discussed with primary doctor and frame expander for Dr. Goss long term care phlebotomist prior to discharge. - Differential Diagnosis COPD, CHF, pneumonia, bronchitis Critical Care Time: No Critical care attestation.: If time is entered above; I have spent that time in minutes in the direct care of this critically ill patient, excluding procedure time. ED Disposition Clinical Impression: COPD with acute exacerbation Disposition: TO HOME OR SELFCARE Is pt being admited?: No Does the pt Need Aspirin: No Condition: Stable Instructions: Chronic Obstructive Pulmonary Disease (ED) Additional Instructions: Take the medication as prescribed. Follow up with your doctor or the c linic/doctor provided. Return if symptoms worsen as indicated by your discharge instructions Prescriptions: Ipratropium/Albuterol Sulfate [DUONEB *Not for PRN Use*] 1 ampul IH QIDRT #30 ampul.neb methylPREDNISolone [Medrol 4MG DOSEPAK (21 tabs)] 4 mg PO DAILY #1 tab.ds.pk ALBUTEROL NEB's [Proventil 0.083% NEBS] 2.5 mg IH TID PRN #30 neb PRN Reason: Wheezing Referrals: Cherelle FLOWERS MD [Staff Physician] - 3-5 Days SHERWIN GOSS MD [Staff Physician] - 3-5 Days Time of Disposition: 12:22
[2019-04-17 11:31] LABS: BUN/Creatinine Ratio 13; Blood Urea Nitrogen 13 mg/dL (7-17); Calcium 9.5 mg/dL (8.4-10.2); Hemolysis Index 39
[2019-04-17 12:48] VITALS: BP 142/85
== END 2019-04-17 12:59 | disposition home or self-care (01) ==
LOC: ED 09:06
DX: J44.1 Chronic obstructive pulmonary disease with (acute) exacerbation (principal); K21.9 Gastro-esophageal reflux disease without esophagitis; I10 Essential (primary) hypertension; M19.90 Unspecified osteoarthritis, unspecified site; Z86.711 Personal history of pulmonary embolism; Z79.899 Other long term (current) drug therapy; Z88.5 Allergy status to narcotic agent; Z95.0 Presence of cardiac pacemaker; Z90.710 Acquired absence of both cervix and uterus; Z90.11 Acquired absence of right breast and nipple; Z98.890 Other specified postprocedural states
CPT/HCPCS: 36415; 71046; 80048; 85025; 94640; 96365; 96366; 96375; 99284; J2930; J3475

== ENCOUNTER 2019-05-13 00:58 | Emergency (ER) | payer MEDICARE, OTHER ==
--- NOTE | 2019-05-13 01:06 | Emergency Department Report ---
ED CPR HPI - General Stated Complaint: CARDIAC ARREST Time Seen by Provider: 05/13/19 01:00 Source: EMS Mode of arrival: Stretcher Limitations: Altered Mental Status, Physical Limitation - History of Present Illness MD Complaint: found unresponsive -: unknown Place: home Bystander CPR Performed: No AED Applied by Bystander/Nurse Prn: No Shock Advised: No Initial Findings in the Field: unresponsive, no respirations, no pulse ROSC in the Field: No Associated Injuries: No Treatments Prior to Arrival: intubation, BMV, chest compressions, epinephrine mgs # - Related Data Home Medications Medication Instructions Recorded Confirmed Last Taken amLODIPine [Norvasc] 5 mg PO DAILY 02/11/19 03/03/19 Unknown ALBUTEROL Inhaler (OR & NICU) 2 puff IH QID PRN 03/03/19 03/03/19 Unknown [ProAir HFA Inhaler] Bevespi Aerosphere Inhaler 03/03/19 Unknown Olmesartan Medoxomil [Benicar] 40 mg PO DAILY 03/03/19 03/03/19 Unknown Previous Rx's Medication Instructions Recorded Last Taken Type Apixaban [Eliquis] 5 mg PO Q12HR 30 Days #60 tablet 03/04/19 Unknown Rx Carvedilol [Coreg] 25 mg PO BID #60 tablet 03/04/19 Unknown Rx LORazepam [Ativan] 0.5 mg PO Q12H PRN #20 tablet 03/04/19 Unknown Rx Losartan [Cozaar] 100 mg PO QDAY #30 tablet 03/04/19 Unknown Rx ALBUTEROL NEB's [Proventil 0.083% 2.5 mg IH TID PRN #30 neb 04/17/19 Unknown Rx NEBS] Ipratropium/Albuterol Sulfate 1 ampul IH QIDRT #30 ampul.neb 04/17/19 Unknown Rx [DUONEB *Not for PRN Use*] methylPREDNISolone [Medrol 4MG 4 mg PO DAILY #1 tab.ds.pk 04/17/19 Unknown Rx DOSEPAK (21 tabs)] Allergies Allergy/AdvReac Type Severity Reaction Status Date / Time codeine Allergy Itching Verified 04/17/19 09:08 ED Review of Systems ROS: Stated complaint: CARDIAC ARREST Other details as noted in HPI Comment: Unobtainable due to pts medical conditions ED Past Medical Hx - Past Medical History Previous Medical History?: Yes Hx Hypertension: Yes Hx Diabetes: No Hx Pulmonary Embolism: Yes Hx GERD: Yes Hx Arthritis: Yes Hx COPD: Yes Hx HIV: No - Surgical History Past Surgical History?: Yes Hx Pacemaker: Yes (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 - Family History Family history: no significant - Social History Smoking Status: Never Smoker Substance Use Type: None - Medications Home Medications: Home Medications Medication Instructions Recorded Confirmed Last Taken Type amLODIPine [Norvasc] 5 mg PO DAILY 02/11/19 03/03/19 Unknown History ALBUTEROL Inhaler (OR & NICU) 2 puff IH QID PRN 03/03/19 03/03/19 Unknown History [ProAir HFA Inhaler] Bevespi Aerosphere Inhaler 03/03/19 Unknown History Olmesartan Medoxomil [Benicar] 40 mg PO DAILY 03/03/19 03/03/19 Unknown History Apixaban [Eliquis] 5 mg PO Q12HR 30 Days #60 tablet 03/04/19 Unknown Rx Carvedilol [Coreg] 25 mg PO BID #60 tablet 03/04/19 Unknown Rx LORazepam [Ativan] 0.5 mg PO Q12H PRN #20 tablet 03/04/19 Unknown Rx Losartan [Cozaar] 100 mg PO QDAY #30 tablet 03/04/19 Unknown Rx ALBUTEROL NEB's [Proventil 0.083% 2.5 mg IH TID PRN #30 neb 04/17/19 Unknown Rx NEBS] Ipratropium/Albuterol Sulfate 1 ampul IH QIDRT #30 ampul.neb 04/17/19 Unknown Rx [DUONEB *Not for PRN Use*] methylPREDNISolone [Medrol 4MG 4 mg PO DAILY #1 tab.ds.pk 04/17/19 Unknown Rx DOSEPAK (21 tabs)] ED Physical Exam - General Limitations: Altered Mental Status, Physical Limitation - Head Head exam: Present: atraumatic, normocephalic - Eye Eye exam: Present: other (pupils fixed and dilated ) - ENT ENT exam: Present: other - Neck Neck exam: Present: normal inspection - Respiratory Respiratory exam: Present: other (patient intubated and bilateral breath sounds) - Cardiovascular Cardiovascular Exam: Present: other (no pulse noted. PEA on the monitor) - GI/Abdominal GI/Abdominal exam: Present: soft - Rectal Rectal exam: Present: deferred - Extremities Exam Extremities exam: Present: normal inspection - Skin Skin exam: Present: intact, normal color. Absent: rash ED Course - Reevaluation(s) Reevaluation #1: Patient arrives with EMS. Patient intubated by EMS. Patient is P on the monitor. No pulse noted. CPR started. Patient's IV lost in route. A left lower extremity IO started 05/13/19 00:55 Reevaluation #2: Resuscitation efforts terminated due to no signs of life. See code note. No cardiac motion with ultrasound. No pulse. Family meeting will be done once the family arrives. 05/13/19 01:01 Reevaluation #3: Family meeting done. Family support given and all questions answered 05/13/19 01:36 - IO Left Tibia Consent Obtained: emergent situation Time Out Performed: Yes IO Instrument Used to Penetrate the Cortex: standard IO needle Patient Tolerated Procedure: well, no complications Complications: none Critical Care Time: Yes Critical care attestation.: If time is entered above; I have spent that time in minutes in the direct care of this critically ill patient, excluding procedure time. Critical Care Time: 35 minutes ED Disposition Clinical Impression: Cardiac arrest Disposition: DC-20 Is pt being admited?: No Does the pt Need Aspirin: No Condition: Undetermined Time of Disposition: 01:37
[2019-05-13] MEDS ORDERED: CALCIUM CHLORIDE IV ONE (01:20)
[2019-05-13] MEDS ORDERED: ADRENALIN ONE (01:20)
== END 2019-05-13 02:45 ==
LOC: ED 00:58 → EEVIPCON 00:58 → ED 02:45
DX: I46.9 Cardiac arrest, cause unspecified (principal); I10 Essential (primary) hypertension; K21.0 Gastro-esophageal reflux disease with esophagitis; M19.90 Unspecified osteoarthritis, unspecified site; J44.9 Chronic obstructive pulmonary disease, unspecified; Z98.890 Other specified postprocedural states; Z95.0 Presence of cardiac pacemaker; Z90.710 Acquired absence of both cervix and uterus; Z79.899 Other long term (current) drug therapy; Z88.6 Allergy status to analgesic agent
CPT/HCPCS: 36680; 82962; 92950; 99285; J0171